=== PATIENT | male | born 1940 | race Caucasian/White ===

== ENCOUNTER → 2023-07-09 16:17 | Outpatient (REF) | payer MEDICARE, OTHER, SELFPAY | LOC: RAD 16:17 | PROVIDERS: ATTENDING PHYSICIAN Family Medicine | DX: M25.512 Pain in left shoulder (principal) | CPT/HCPCS: 73030 ==

== ENCOUNTER 2024-01-17 01:10 | Observation (INO) | payer MEDICARE, OTHER, SELFPAY ==
[2024-01-16 20:23] VITALS: BMI 29.2
[2024-01-16 20:24] VITALS: BP 112/73
[2024-01-16 20:51] VITALS: BP 95/65
[2024-01-16 21:00] VITALS: BP 94/60
[2024-01-16 22:00] VITALS: BP 95/66
[2024-01-16 22:05] LABS: % Basophils 1.1 % (0-2); % Eosinophils 5.9 % (0-6); % Immature Granulocytes 0.4 % (0-0.5); % Lymphocytes 15.5 % (20.5-51.1); % Neutrophils 68.1 % (42.2-75.2); Absolute Basophils 0.1 10^3/uL (0-0.2); Absolute Eosinophils 0.5 10^3/uL (0-0.7); Absolute Lymphocytes 1.4 10^3/uL (1.2-3.4); Absolute Monocytes 0.8 10^3/uL (0.1-0.6); Absolute Neutrophils 6.3 10^3/uL (1.4-6.5); Hematocrit 34.9 % (39.0-52.0); Hemoglobin 11.9 g/dL (13.0-18.0); Mean Corp Hgb Conc. 34.1 g/dL (33.0-37.0); Mean Corpuscular Hgb 30.7 pg (27.0-31.0); Mean Corpuscular Volume 90.2 fL (80.0-94.0); Mean Platelet Volume 11.2 fL (7.4-10.4); Nucleated Red Blood Cells % 0 % (-); Platelet Count 198 10^3/uL (130-400); Red Blood Cell Count 3.87 10^6/uL (4.70-6.10); Red Cell Dist. Width 12.8 % (11.5-14.5); White Blood Cell Count 9.2 10^3/uL (4.8-10.8)
[2024-01-16 22:17] LABS: ALT (SGPT) 30 U/L (0-50); AST (SGOT) 31 U/L (17-59); Albumin 4.4 g/dl (3.5-5.0); Alkaline Phosphatase 57 U/L (38-126); Blood Urea Nitrogen 49 mg/dl (9-20); Calcium 9.6 mg/dl (8.4-10.2); Carbon Dioxide 21 mmol/L (22-30); Chloride 107 mmol/L (98-107); Estimated Creatinine Clearance 41 ml/min; Glucose 90 mg/dl (70-99); Potassium 4.6 mmol/L (3.5-5.1); Sodium 142 mmol/L (135-145); Total Bilirubin 0.5 mg/dl (0.2-1.3); Total Protein 7.1 g/dl (6.3-8.2); eGFR 45.91
[2024-01-16 22:28] LABS: Troponin I < 0.012 ng/ml
[2024-01-16 23:00] VITALS: BP 97/64
--- NOTE | 2024-01-16 23:35 | ED.GENMED ---
History of Present Illness
General
Chief Complaint: Heart Rate Problem
Source: patient and family
Exam Limitations: none
Time Seen by Provider: 01/16/24 21:18
Nursing documentation reviewed up to this point in time: agreed with
History of Present Illness
History of Present Illness:
83-year-old male with past with history of pacemaker insertion 8 days ago as well as multiple cardiac surgeries presenting to the emergency department today with concerns of elevated heart rate symptoms Apple Watch in the 140s 150s lasting over an
hour but improved just prior to arrival. No fevers redness swelling warmth or any signs of infection to the surgical site.
Review of Systems
Review of Systems
Allergies reviewed?: Yes
All Other Systems: ROS reviewed and negative except as documented in HPI and ROS
Phy Exam
Physical Exam
Physical Exam:
GENERAL: Alert , in no apparent distress
EYE: pupils equal and reactive
NECK: Supple, no significant adenopathy.
ENT: o/p clr, mmm.
CARDIAC: Incision at site of pacemaker insertion. Regular rate and rhythm .
LUNGS: Clear breath sounds bilaterally, no acute respiratory distress, no wheezes/rales/rhonchi
ABDOMEN: Soft, without focal tenderness, no r/g, no cvat
NEUROLOGICAL: Alert and oriented, no focal neuro deficits
SKIN: Warm and dry, skin intact.
MUSCULOSKELETAL: No edema, well perfused.
PSYCH: Normal and appropriate interaction.
Well-healing
Course
Orders/Labs/Results
Orders:
Orders
01/16/24 20:24
EKG [Electrocardiogram (*1)] Urgent
Reason for Study: Bradycardia / Tachycardia
EKG- Treatment ONCE
01/16/24 21:40
Chest [CR Chest - 2 Views ] Urgent
Comment:
Reason For Exam: pacer 8 days ago cp/tachy
01/16/24 21:58
CBC/With Diff [Complete Blood Count/With Diff] Urgent
CMP [Comprehensive Metabolic Panel] Urgent
Troponin I Urgent
01/16/24 22:00
Echo 2D MMode Color/Doppler Urgent
Reason for Study: recent pacemaker, hypotensive
Abnormal Lab Results
01/16/24
21:58
RBC 3.87 L 10^6/uL
(4.70-6.10)
Hgb 11.9 L g/dL
(13.0-18.0)
Hct 34.9 L %
(39.0-52.0)
MPV 11.2 H fL
(7.4-10.4)
Absolute Monos (auto) 0.8 H 10^3/uL
(0.1-0.6)
Lymphocytes % 15.5 L %
(20.5-51.1)
Carbon Dioxide 21 L mmol/L
(22-30)
BUN 49 H mg/dl
(9-20)
Creatinine 1.5 H mg/dL
(0.7-1.3)
01/16/24 21:58
01/16/24 21:58
Vital Signs
Initial and Last Documented VS:
Initial Vital Signs
Temp Pulse Resp BP Pulse Ox
98.4 F 101 20 112/73 98
01/16/24 20:24 01/16/24 20:24 01/16/24 20:24 01/16/24 20:24 01/16/24 20:24
Last Documented Vital Signs
Temp Pulse Resp BP Pulse Ox
98.4 F 83 18 95/66 95
01/16/24 20:24 01/16/24 22:00 01/16/24 22:00 01/16/24 22:00 01/16/24 22:00
MDM/Problems Addressed
MDM/Problems Addressed:
83-year-old male with past with history of pacemaker insertion 8 days ago as well as multiple cardiac surgeries presenting to the emergency department today with concerns of elevated heart rate symptoms Apple Watch in the 140s 150s lasting over an
hour but improved just prior to arrival. Upon arrival blood pressure relatively low in the 90s and 80s systolic over 60s. Case was discussed with his [facility] cardiac team that recommended getting an echo and further assessment as well as
interrogation. Additional labs and chest x-ray ordered as well. Case discussed with cardiology here recommended admission for echo in the morning and the whole blood pressure medications. Otherwise stable during ER stay with plans to admit for
further assessment
*Critical Care Note
Total Time (30-74mins, 75-104mins- exclusive of procedures): Not Applicable
ED Attending Note
-
Portions of this chart may have been created with voice recognition software.� Occasional wrong word or��sound alike� substitutions may have occurred due to the inherent limitations of voice recognition software.
Discharge Plan
Departure
Patient Disposition: Admit
Date of Disposition: 01/16/24
Time of Disposition: 23:36
Admit to: Telemetry
Admit to doctor: Johan
Presentation/result/management discussed w/ accepting MD/DO: Hospitalist
Patient with high blood pressure during this ER visit?: No
Condition: Good
Covid-19: Not Applicable
Discharge Problem:
Tachycardia
Prescriptions:
No Action
atorvastatin 80 mg Tablet
80 mg PO DAILY
metoprolol succinate 100 mg Tablet Extended Release 24 Hr
100 mg PO HS
spironolactone 25 mg Tablet
25 mg PO DAILY
aspirin 81 mg Tablet
81 mg PO DAILY
furosemide 20 mg Tablet
20 mg PO PRN PRN (Reason: Swelling)
Rx Instructions:
take if pt. has weight gain >3lbs.
potassium chloride 20 mEq Tablet Extended Release
20 meq PO DAILY
Rx Instructions:
take if pt. is taking lasix.
sacubitril-valsartan 49-51 mg Tablet
1 tab PO BID
Referrals:
UNKNOWN - PT DOES,NOT KNOW [Family Provider] -
Interventions
Interventions:
*Risk Screen - Suicide Last Done: 01/16/24 20:24
*General Assessment Last Done: 01/16/24 20:24
*Neglect/Abuse Screening Last Done: 01/16/24 20:24
ED- Fall Risk Assessment Last Done: 01/16/24 20:56
*ED COVID-19 Vaccine History Last Done: 01/16/24 20:53
ED- Cardiac Assessment Last Done: 01/16/24 20:53
ED- Pulmonary Assessment Last Done: 01/16/24 20:53
Discharge Date and Time
Print Language: [id number]
[2024-01-17] VITALS (7 sets, daily range): BP systolic 91–118; BP diastolic 52–72; PULSE 69–73; BMI 28.3
--- NOTE | 2024-01-17 00:53 | HPS.HSE ---
Family Physician
-
Family Physician: NOT KNOW UNKNOWN - PT DOES
Chief Complaint
-
Tachycardia
History of Present Illness
Patient is an 83y M with PMH significant for ASCVD, cardiomyopathy and recent BiV PPM / AICD placement who presents to ED complaining of tachycardia at home this evening. Patient notes that he had PPM placed at [facility] on 01/08/24. He has bene
doing well until this evening around diner time when his Apple watch alerted him that his heart rate was 150 - 160 bpm. Patient had no chest pain, palpitations, lightheadedness or dizziness. He presented to the ED for evaluation.
Medical History
Past Medical History
Past Medical History: Reports Other
Additional Past Medical History:
ASCVD
Ischemic Cardiomyopathy
Chronic HFrEF
Paroxysmal Atrial Fibrillation
Hypertension
Colon Cancer
Past Surgical History: Reports Other
Additional Past Surgical History:
PPM / AICD Placement (01/08/24)
CABG x 2
Revision CABG (two separate times)
Partial Colectomy
Social History
Tobacco: Former Smoker (Quit smoking 40 years ago. Approx 20 pack years total use.)
Alcohol: Daily (1 glass wine daily.)
Drug: None
Family History
Family History: Not pertinent
Allergies / Home Medications
Allergies reflects when Allergies were last updated in [facility].
Home Medications with original date entered in [facility]
Allergy/Medication List:
Allergies
Allergy/AdvReac Type Severity Reaction Status Date / Time
iodine Allergy Unknown Verified 01/16/24 20:30
Home Medications
aspirin 81 mg tablet 81 mg PO DAILY 01/16/24
atorvastatin 80 mg tablet 80 mg PO DAILY 01/16/24
furosemide 20 mg tablet 20 mg PO PRN PRN Swelling 01/16/24
metoprolol succinate 100 mg tablet,extended release 24 hr 100 mg PO HS 01/16/24
potassium chloride 20 mEq tablet,extended release 20 meq PO DAILY 01/16/24
sacubitril 49 mg-valsartan 51 mg tablet 1 tab PO BID 01/16/24
spironolactone 25 mg tablet 25 mg PO DAILY 01/16/24
Review of Systems
-
History Source: Patient
A 12 point ROS was completed and negative except as noted: Yes
Constitutional: Denies Fever or Chills
EENT: Denies Sore Throat
Respiratory: Denies Cough or Trouble Breathing
Cardiac: Denies Chest Pain or Palpitations
Abdomen/GI: Denies Abdominal Pain, Nausea, Vomiting or Diarrhea
: Denies Dysuria, Frequency or Flank Pain
Musculoskeletal: Denies Joint Pain or Edema
Neurological: Denies Dizzy or Headache
Psych: Denies Depression or Anxiety
Physical Exam
Vital Signs
Vital Signs
Temp Pulse Resp BP Pulse Ox
98.4 F 84 18 97/59 92
01/16/24 20:24 01/17/24 00:00 01/17/24 00:00 01/17/24 00:00 01/16/24 23:45
Physical Exam
General: Other (83y M in no distress.)
HEENT: Moist mucous membranes and PERRLA
Respiratory: Clear; No Wheezes, Rales or Rhonchi
Cardiac: S1/S2, Irregular Rhythm and Other (L ACW PPM site well-appearing. Abrasion / crusting superior to incision due to dressing injury per patient.); No Murmur
GI: Soft, Non Tender, Non Distended and Normal Bowel Sounds
Musculoskeletal: No Clubbing, No Cyanosis and Other (Trace ankle edema bilaterally.)
Neuro: AO x 3
Laboratory Results
-
01/16/24 21:58
01/16/24 21:58
Laboratory Results
Total Bilirubin 0.5 mg/dl (0.2-1.3) 01/16/24 21:58
AST 31 U/L (17-59) 01/16/24 21:58
ALT 30 U/L (0-50) 01/16/24 21:58
Alkaline Phosphatase 57 U/L (38-126) 01/16/24 21:58
Troponin I < 0.012 ng/ml 01/16/24 21:58
Impression/Plan
-
A/P: Patient is an 83y M with PMH significant for ASCVD, CHF and recent PPM placement who presents to ED for evaluation of suspected tachycardia.
Tachycardia
Recent PPM / AICD Placement
- Observe overnight for further evaluation and treatment.
- Patient notes that his Apple Watch reported heart rates of 150 - 160 this evening.
- Device interrogation notes multiple episodes of AT/AF since implantation - including several this evening.
- Ventricular rates seem to have been < 110 for the majority of those episodes however.
- ED reviewed with Cardiology who recommended hospitalization and Echo in the AM.
- Patient is asymptomatic and was asymptomatic earlier in the evening when his watch alerted.
ASCVD
Ischemic Cardiomyopathy
- Continue current CV med regimen.
- Follow I/Os, daily weights, etc.
Paroxysmal Atrial Fibrillation
- Continue metoprolol for rate control.
- Continue Eliquis for stroke risk reduction.
DVT Prophylaxis: On Eliquis
Code Status: Full
--- NOTE | 2024-01-17 04:42 | PTCARENOTE ---
Pt received from ED via stretcher. Ambulated to bed w/assist without incident. Telemetry = A/V pacing. Oriented to surroundings and plan of care discussed. Admission and assessment completed (refer to worklist). Instructed to ring for assist
when getting OOB, verbalizes understanding. Call melo within reach. Plan of care ongoing.
[2024-01-17 08:10] LABS: Mean Corp Hgb Conc. 35.5 g/dL (33.0-37.0); Mean Corpuscular Hgb 32.2 pg (27.0-31.0); Mean Corpuscular Volume 90.6 fL (80.0-94.0); Mean Platelet Volume 11.9 fL (7.4-10.4); Platelet Count 179 10^3/uL (130-400); Red Blood Cell Count 3.42 10^6/uL (4.70-6.10); White Blood Cell Count 7.1 10^3/uL (4.8-10.8)
--- NOTE | 2024-01-17 08:41 | CON.CAR ---
Consultation
Consultation Request
Date/Time Consultation Requested: 01/16/24, 10pm
Date/Time Consultation Performed: 01/17/24, 8am
Requesting Provider: Johan
Performing Provider: Radha
Reason for Consultation: tachycardia
Medical History
-
Chief Complaint: tachycardia
History of Present Illness:
83 yo male with PMH of CAD/CABG, ICM EF approx 30%, chronic systolic HF, recent placement of MDT BiV ICD, paroxysmal A fib on eliquis presents to ED with tachycardia on his watch. No symptoms. He had some low BP in ED, so admitted for OBS.
No chest pain, dizziness, syncope. No edema.
Past Medical History
Past Medical History: Arrhythmias (paroxysmal A fib), CAD, CHF (chronic systolic), Hypercholesterolemia and Renal Failure (CKD3a)
Past Surgical History: Cardiac (CABG)
Social History
Tobacco: Non-Smoker
Family History
Family History: Early CAD (none)
Allergies / Home Medications
Allergy/AdvReac Type Severity Reaction Status Date / Time
iodine Allergy Unknown Verified 01/16/24 20:30
�Medication �Instructions �Recorded �Confirmed �Type
aspirin 81 mg tablet 81 mg PO DAILY 01/16/24 01/16/24 History
atorvastatin 80 mg tablet 80 mg PO DAILY 01/16/24 01/16/24 History
furosemide 20 mg tablet 20 mg PO PRN PRN Swelling 01/16/24 01/16/24 History
metoprolol succinate 100 mg 100 mg PO HS 01/16/24 01/16/24 History
tablet,extended release 24 hr
potassium chloride 20 mEq 20 meq PO DAILY 01/16/24 01/16/24 History
tablet,extended release
sacubitril 49 mg-valsartan 51 mg 1 tab PO BID 01/16/24 01/16/24 History
tablet
spironolactone 25 mg tablet 25 mg PO DAILY 01/16/24 01/16/24 History
apixaban 5 mg tablet (Eliquis) 5 mg PO BID 01/17/24 01/17/24 History
Review of Systems
-
History Source: Patient
Constitutional: Fatigue
Cardiac: Other (tachycardia on watch)
Physical Exam
Vital Signs
Temp Pulse Resp BP Pulse Ox
97.4 F 69 18 100/70 94
01/17/24 07:00 01/17/24 07:00 01/17/24 07:00 01/17/24 07:00 01/17/24 07:00
Lab Results
01/17/24 07:22
Troponin I < 0.012 ng/ml 01/16/24 21:58
Physical Exam
General: Well Developed and Well Nourished
HEENT: Normocephalic and Anicteric
Respiratory: Clear and Non Labored Respirations
Cardiac: S1/S2 (normal), Regular Rhythm, Murmur (none) and JVD (none)
Musculoskeletal: No Clubbing, No Cyanosis and No Edema
Skin: Warm and Dry
Neuro: AO x 3
Psych: Calm
Impression / Plan
-
83 yo male with PMH of CAD/CABG, ICM EF approx 30%, chronic systolic HF, recent placement of MDT BiV ICD, paroxysmal A fib on eliquis, CKD3b presents to ED with tachycardia on his watch. No symptoms. He had some low BP in ED, so admitted for OBS.
# Tachycardia
-device check shows runs of A fib: he has known paroxysmal A fib; runs are asymptomatic
-cont Toprol XL 100mg daily: sounds like dose has been limited by BP in past
# Paroxysmal A fib
-no sxs: cont Toprol XL and eliquis
# ICM EF approx 30%, chronic systolic HF, recent placement of MDT BiV ICD
-appears euvolemic
-echo to make sure no effusion s/p recent device placmement
-cont Toprol XL, entresto, aldactone
#CKD3a
-stable, Cr 1.3 (so he is on eliquis 5mg bid)
Data Reviewed
-
EKG: Tracing Personally Visualized and interpreted (BiV paced)
Labs: Labs Reviewed by me
[2024-01-17] MEDS: ASPIR LOW (ENTERIC COATED) 81 MG PO (08:46)
[2024-01-17] MEDS: ELIQUIS 5 MG PO (08:46)
[2024-01-17] MEDS: LIPITOR 80 MG PO (08:46)
[2024-01-17 08:47] LABS: Blood Urea Nitrogen 48 mg/dl (9-20); Calcium 9.1 mg/dl (8.4-10.2); Carbon Dioxide 21 mmol/L (22-30); Chloride 110 mmol/L (98-107); Estimated Creatinine Clearance 47 ml/min; Glucose 95 mg/dl (70-99); Magnesium 2.1 mg/dl (1.6-2.3); Potassium 4.5 mmol/L (3.5-5.1); Sodium 142 mmol/L (135-145); eGFR 54.51
--- NOTE | 2024-01-17 10:31 | W.PN.HOSP.TC ---
Addendum entered and electronically signed by Sabine Cleaning MD 01/17/24 13:35:
Addendum
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
Original Note:
Today's Communication/Plan
-
f/w cardiology recommendation
c/w Eliquis for now
Assessment / Plan
Assessment / Plan
Physical Exam
General: Other (83y M in no distress.)
HEENT: Moist mucous membranes and PERRLA
Respiratory: Clear; No Wheezes, Rales or Rhonchi
Cardiac: S1/S2, Irregular Rhythm and Other (L ACW PPM site well-appearing. Abrasion / crusting superior to incision due to dressing injury per patient.); No Murmur
GI: Soft, Non Tender, Non Distended and Normal Bowel Sounds
Musculoskeletal: No Clubbing, No Cyanosis and Other (Trace ankle edema bilaterally.)
Neuro: AO x 3, he followed commands
Psych: calm
Patient is an 83y M with PMH significant for ASCVD, CHF and recent PPM placement who presents to ED for evaluation of suspected tachycardia.
Tachycardia
Recent PPM / AICD Placement
device check shows runs of A fib: he has known paroxysmal A fib; runs are asymptomatic, c/w Eliquis.
No signs of infection
No pericardial rub
Negative troponin
EKG paced rhythm
Not in distress
No arrhythmias over night
Echo to rule out pericardial effusion
Will f/w cardiology
ASCVD
Ischemic Cardiomyopathy. ICM EF approx 30%, chronic systolic HF
- Continue current CV med regimen.
- Follow I/Os, daily weights, etc.
Paroxysmal Atrial Fibrillation
- Continue metoprolol for rate control.
- Continue Eliquis for stroke risk reduction.
DVT Prophylaxis: On Eliquis
Code Status: Full
Total time spent to see the patient, examine the patient on the floor, review data and lab results, discuss treatment plan with patient, lithographing machine operator, nursing staff around 55 minutes
Anticipated Discharge: Within 24 hours
Subjective/Interval History
-
Date of Service: January 17, 2024
No chest pain
No sob
No fevers
Objective Data
-
Labs:
Laboratory Results
01/17/24
07:22
WBC 7.1
Hgb 11.0 L
Hct 31.0 L
Plt Count 179
Sodium 142
Potassium 4.5
Chloride 110 H
Carbon Dioxide 21 L
BUN 48 H
Creatinine 1.3
Glucose 95
Calcium 9.1
Vital Signs:
Vital Signs
Temp Pulse Resp BP Pulse Ox
97.4 F 69 18 100/70 94
01/17/24 07:00 01/17/24 07:00 01/17/24 07:00 01/17/24 07:00 01/17/24 07:00
[2024-01-17] MEDS: ENTRESTO 49 MG/51 MG 1 TAB PO (12:14)
[2024-01-17] MEDS: DESENEX/MITRAZOL/ZEASORB 1 APPLIC TOPICAL (12:15)
--- NOTE | 2024-01-17 12:57 | W.DCSUMMARY ---
Discharge Summary
Discharge Data
Date of Admission: 01/17/24
Date of Discharge: 01/17/24
-
Pending Results: No
Hospital Course
83 years old male with history of ischemic cardiomyopathy LVEF 30-35% presented to the hospital with history of tachycardia that was noted on his watch. He did not have chest pain, dizziness, syncope or shortness of breath. Patient had recent
placement of MDT BiV ICD at [facility] in [place]. He had negative troponin and EKG showed paced rhythm. Patient was evaluated by flooring salesperson. Device check showed runs of atrial fibrillation. Patient has known history of
paroxysmal atrial fibrillation and was taking Toprol and Eliquis. Cardiology ordered an echocardiogram to rule out pericardial effusion. Echocardiogram on 01/17/24 showed moderately reduced left ventricular systolic function with ejection fraction
around 30 to 35%, normal pericardium without effusion. Cardiology recommended to continue home medications and to follow-up with primary flooring salesperson as scheduled. Patient remained hemodynamically stable. He did not have recurrent arrhythmias on
telemetry. He was discharged home in a stable condition.
Discharge Plan
-
Patient Disposition: Home (Routine Discharge)
Discharge Diagnosis/Procedures: Tachycardia consistent with runs of paroxysmal atrial fibrillation
You were evaluated by flooring salesperson Dr. Tyler Garcia and had echocardiogram that did not show effusion. Follow with your flooring salesperson as scheduled.
Diet: As tolerated and Low Sodium
Referrals:
UNKNOWN - PT DOES,NOT KNOW [Family Provider] -
Prescriptions:
Continued
atorvastatin 80 mg Tablet
80 mg PO DAILY
metoprolol succinate 100 mg Tablet Extended Release 24 Hr
100 mg PO HS
spironolactone 25 mg Tablet
25 mg PO DAILY
aspirin 81 mg Tablet
81 mg PO DAILY
furosemide 20 mg Tablet
20 mg PO PRN PRN (Reason: Swelling)
Rx Instructions:
take if pt. has weight gain >3lbs.
potassium chloride 20 mEq Tablet Extended Release
20 meq PO DAILY
Rx Instructions:
take if pt. is taking lasix.
sacubitril-valsartan 49-51 mg Tablet
1 tab PO BID
Eliquis 5 mg Tablet
5 mg PO BID
Discharge Orders:
Discharge Patient (As Directed); Ordered 01/17/24
Ordered By: Sabine Cleaning
Discharge Date and Time
Print Language: ESTONIAN
--- NOTE | 2024-01-17 14:13 | CM ---
met with patient at bedside.he lives with his /pojosafat Carmona in house with 3 randy,his bed and bath is on the second level.he is tiotallyI
.he has nver had a vn or been in ip rehab.
PCP is dr gladis zamora and he uses [facility].
patient is adm with par afib.he was seen by meek,had an echo,cont metoprolol for rate control,cont eliquis.Plan :stable for dc home with no needs.
== END 2024-01-17 15:23 | disposition home or self-care (01) ==
LOC: 3 WEST ACU 01:10
PROVIDERS: Physician Assistant; ADMITTING PHYSICIAN Hospitalist; ATTENDING PHYSICIAN Internal Medicine; CONSULT PHYSICIAN Internal Medicine; EMERGENCY PHYSICIAN Emergency Medicine
DX: I48.0 Paroxysmal atrial fibrillation (principal); R00.1 Bradycardia, unspecified; R00.0 Tachycardia, unspecified; I25.10 Atherosclerotic heart disease of native coronary artery without angina pectoris; I25.5 Ischemic cardiomyopathy; N18.32 Chronic kidney disease, stage 3b; I13.0 Hypertensive heart and chronic kidney disease with heart failure and stage 1 through stage 4 chronic kidney disease, or unspecified chronic kidney disease; I50.22 Chronic systolic (congestive) heart failure; I95.9 Hypotension, unspecified; E78.00 Pure hypercholesterolemia, unspecified; R07.9 Chest pain, unspecified; I70.0 Atherosclerosis of aorta; Z85.038 Personal history of other malignant neoplasm of large intestine; Z95.1 Presence of aortocoronary bypass graft; Z90.49 Acquired absence of other specified parts of digestive tract; Z87.891 Personal history of nicotine dependence; Z91.041 Radiographic dye allergy status; Z79.01 Long term (current) use of anticoagulants; Z95.810 Presence of automatic (implantable) cardiac defibrillator; Z79.82 Long term (current) use of aspirin
CPT/HCPCS: 93261; 71046; 80048; 80053; 83735; 84484; 85025; 85027; 93005; 93306; 97162; 99285; G0378

== ENCOUNTER → 2024-09-20 14:11 | Outpatient (REF) | payer MEDICARE, OTHER, SELFPAY | LOC: DHSLP 14:11 | PROVIDERS: ATTENDING PHYSICIAN Internal Medicine | DX: G47.33 Obstructive sleep apnea (adult) (pediatric) (principal); R09.02 Hypoxemia; G47.61 Periodic limb movement disorder | CPT/HCPCS: 95810 ==

== ENCOUNTER → 2024-09-30 10:35 | Outpatient (REF) | payer MEDICARE, OTHER, SELFPAY ==
[2024-09-30 17:16] LABS: Free T4 1.66 ng/dl (0.78-2.19)
[2024-09-30 17:30] LABS: TSH 5.24 uIU/ml (0.47-4.68)
[2024-09-30 18:09] LABS: Folate 10.8 ng/ml (2.76-20); Vitamin B12 515 pg/ml (239-931)
== END ==
LOC: OLABPV 10:35
PROVIDERS: ATTENDING PHYSICIAN Specialist
DX: E03.8 Other specified hypothyroidism (principal); D51.8 Other vitamin B12 deficiency anemias
CPT/HCPCS: 36415; 82607; 82746; 84439; 84443

== ENCOUNTER 2024-10-15 13:41 | Emergency (ER) | payer MEDICARE, OTHER, SELFPAY ==
--- NOTE | 2024-10-15 14:08 | ED.MUSCINJ ---
HPI-Injury
General
Chief Complaint: Fall
Source: patient
Exam Limitations: none
Time Seen by Provider: 10/15/24 13:56
History of Present Illness-Injury
Initial Injury comments:
84-year-old male on [place] presents after a trip and fall. He had uneven sidewalk he was walking on and lost his balance and fell forward hitting his face. He denies significant headache or loss conscious. No neck pain. He notes bleeding from
his lower lip and abrasion to the nose and upper lip. No chest pain. No arm or leg pain. No other complaints
Phy Exam
Physical Exam
Physical Exam:
General: Well-appearing male no acute respiratory distress
HEENT: Normocephalic abrasion noted to the tip of the nose upper lip and lower lip as well. Dentition appears well. Mandible nontender facial bones nontender
Musculoskeletal exam: No significant tenderness of the cervical spine. No deformities noted to the extremities
Neurologic: Alert and oriented no facial asymmetry conversing appropriately
Injury Course
Orders/Labs/Results
Orders:
Orders
10/15/24 14:06
CT Cervical Spine W/o Iv Contr Urgent
Comment:
Reason For Exam: fall
CT Facial Bones W/o Iv Contras Urgent
Comment:
Reason For Exam: fall
CT Head W/o Iv Contrast Urgent
Comment:
Reason For Exam: fall
MDM/Problems Addressed
Differential Diagnosis Includes:
Mechanical fall with head strike. CT face head and cervical spine pending to evaluate for fractures intracranial hemorrhage
*Pulse Oximetry
SaO2: 92
Oxygen Mode of Delivery: Room air
Patient hypoxic: no
*Critical Care Note
Total Time (30-74mins, 75-104mins- exclusive of procedures): Not Applicable
Update Note
Update Note:
CT of head face and cervical spine all reviewed and are negative for acute traumatic injury other than contusion to the face. The face was cleansed and dressed. No indication for admission. Stable for discharge
ED Attending Note
-
Portions of this chart may have been created with voice recognition software.� Occasional wrong word or��sound alike� substitutions may have occurred due to the inherent limitations of voice recognition software.
Discharge Plan
Departure
Patient Disposition: Home (Routine Discharge)
Date of Disposition: 10/15/24
Time of Disposition: 15:20
Patient with high blood pressure during this ER visit?: No
Discharge Problem:
Contusion
Instructions: Contusion (DC)
Prescriptions:
No Action
atorvastatin 80 mg Tablet
80 mg PO DAILY
metoprolol succinate 100 mg Tablet Extended Release 24 Hr
100 mg PO HS
spironolactone 25 mg Tablet
25 mg PO DAILY
aspirin 81 mg Tablet
81 mg PO DAILY
furosemide 20 mg Tablet
20 mg PO PRN PRN (Reason: Swelling)
Rx Instructions:
take if pt. has weight gain >3lbs.
potassium chloride 20 mEq Tablet Extended Release
20 meq PO DAILY
Rx Instructions:
take if pt. is taking lasix.
sacubitril-valsartan 49-51 mg Tablet
1 tab PO BID
Eliquis 5 mg Tablet
5 mg PO BID
Referrals:
Olga Bell MD [Family Provider, Family Practice]
Activity Restrictions/Additional Instructions:
You may apply ice for swelling. May take Tylenol for pain. Return if worse otherwise follow-up with your doctor
Interventions
Interventions:
*Risk Screen - Suicide Last Done: 10/15/24 13:43
*General Assessment Last Done: 10/15/24 13:43
*Neglect/Abuse Screening Last Done: 10/15/24 13:43
ED-Musculoskeletal Assessment Last Done: 10/15/24 14:42
ED- Neurological Assessment Last Done: 10/15/24 14:42
ED-Skin Assessment Last Done: 10/15/24 14:42
Discharge Date and Time
Print Language: [place]LAND[place]
== END 2024-10-15 15:25 | disposition home or self-care (01) ==
LOC: EMR 13:41
PROVIDERS: EMERGENCY PHYSICIAN Emergency Medicine; FAMILY PHYSICIAN Family Medicine
DX: S00.83XA Contusion of other part of head, initial encounter (principal); S00.31XA Abrasion of nose, initial encounter; S00.511A Abrasion of lip, initial encounter; W01.0XXA Fall on same level from slipping, tripping and stumbling without subsequent striking against object, initial encounter
CPT/HCPCS: 99284; 70450; 70486; 72125

== ENCOUNTER → 2024-10-18 11:46 | Outpatient (REF) | payer MEDICARE, OTHER, SELFPAY ==
[2024-10-18 12:31] LABS: % Basophils 1.3 % (0-2); % Eosinophils 4.9 % (0-6); % Immature Granulocytes 0.1 % (0-0.5); % Lymphocytes 21.2 % (20.5-51.1); % Monocytes 9.9 % (1.7-9.3); % Neutrophils 62.6 % (42.2-75.2); Absolute Basophils 0.1 10^3/uL (0-0.2); Absolute Eosinophils 0.4 10^3/uL (0-0.7); Absolute Lymphocytes 1.6 10^3/uL (1.2-3.4); Absolute Monocytes 0.8 10^3/uL (0.1-0.6); Absolute Neutrophils 4.8 10^3/uL (1.4-6.5); Hematocrit 33.5 % (39.0-52.0); Mean Corp Hgb Conc. 32.8 g/dL (33.0-37.0); Mean Corpuscular Hgb 30.6 pg (27.0-31.0); Mean Corpuscular Volume 93.1 fL (80.0-94.0); Mean Platelet Volume 12.2 fL (7.4-10.4); Nucleated Red Blood Cells % 0 % (-); Platelet Count 176 10^3/uL (130-400); Red Cell Dist. Width 14.5 % (11.5-14.5); White Blood Cell Count 7.6 10^3/uL (4.8-10.8)
[2024-10-18 13:50] LABS: TSH 6.47 uIU/ml (0.47-4.68)
[2024-10-19 22:05] LABS: Thyroid Peroxidase Ab (TPO) 0.7 IU/mL (0.0-9.0)
== END ==
LOC: OLABPV 11:46
PROVIDERS: ATTENDING PHYSICIAN Family Medicine
DX: D64.9 Anemia, unspecified (principal); R79.89 Other specified abnormal findings of blood chemistry
CPT/HCPCS: 36415; 84443; 85025; 85045; 86376

== ENCOUNTER → 2025-01-14 11:00 | Outpatient (REF) | payer MEDICARE, OTHER, SELFPAY | LOC: DHSLP 11:00 | PROVIDERS: ATTENDING PHYSICIAN Internal Medicine; FAMILY PHYSICIAN Family Medicine | DX: G47.33 Obstructive sleep apnea (adult) (pediatric) (principal) | CPT/HCPCS: 95810 ==